=== PATIENT | female | born 1980 | race Caucasian/White ===

== ENCOUNTER 2024-06-12 13:58 | Emergency (ER) | payer BC, SELFPAY ==
[2024-06-12 14:17] VITALS: BP 167/87; PULSE 88; TEMP 36.8; O2SAT 98; BMI 35.0
--- NOTE | 2024-06-12 14:38 | CT_ITS ---
[address] [address] Patient Name: CECY VIRAMONTES MRN: [id number] date: 1980 Sex: F Assigned Patient Location: ER Current Patient Location: Accession/Order Number: [id number] Exam Date: 06/12/2024 14:51 Report Date: 06/12/2024 15:22 At the request of: BRIAN GONZALEZ Procedure: CT abdomen pelvis wo con EXAM: CT abdomen pelvis wo con HISTORY: Hematuria, urinary pressure COMPARISON: None. TECHNIQUE: CT of the abdomen and pelvis without intravenous contrast. Dose reduction techniques were achieved by using automated exposure control and/or adjustment of mA and/or kV according to patient size and/or use of iterative reconstruction technique. FINDINGS: Limited evaluation of the viscera/organs and vasculature without intravenous contrast. TUBES AND IMPLANTS: Intrauterine device LOWER CHEST: Unremarkable ABDOMEN and PELVIS ABDOMINAL WALL AND SOFT TISSUES: Unremarkable. BONES: No suspicious lesions. ARTERIES: Incompletely evaluated. No aortoiliac aneurysm. VEINS: Incompletely evaluated. LYMPH NODES: Unremarkable. PERITONEUM/ RETROPERITONEUM: No abscess or evidence of perforation. BOWEL: Unremarkable. APPENDIX: The appendix is filled with fluid and the tip of the appendix is dilated measuring 1.1 centimeters. No surrounding inflammatory changes. LIVER: No suspicious lesions within the [id number]. GALLBLADDER: Unremarkable. BILE DUCTS: Not dilated SPLEEN: Unremarkable PANCREAS: Unremarkable. ADRENALS: Unremarkable. KIDNEYS/ URETERS: A 2 millimeter nonobstructing left renal calculus. No right stones or hydronephrosis. REPRODUCTIVE ORGANS: Right ovarian cyst measuring 5.6 centimeters. Uterus and left ovary appear grossly unremarkable. URINARY BLADDER: Moderate wall thickening CT/CT abdomen pelvis wo con IMPRESSION: 1. Moderate wall thickening of the bladder, correlate for cystitis. 2. A 2 millimeter nonobstructing left renal calculus. 3. Right ovarian cyst measuring 5.6 centimeters. Pelvic ultrasound for further evaluation as clinically warranted. 4. The appendix is filled with fluid and the tip of the appendix is dilated measuring 1.1 centimeters. No surrounding inflammatory changes. No convincing evidence of acute appendicitis at this time. Close clinical follow-up is recommended. Electronically authenticated by: MISSY OBRIEN Date: 06/12/2024 15:22
--- NOTE | 2024-06-12 14:39 | ED.GENADUL1 ---
HPI HPI - General Adult General Chief complaint: Urogenital-Female Stated complaint: UTI COMPLAINTS Time Seen by Provider: 06/12/24 14:25 Source: patient Mode of arrival: walk-in Limitations: no limitations History of Present Illness HPI narrative: Patient is a 44-year-old female who presents to the emergency department for a 4-week history of burning with urination and pelvic pressure. She has an IUD in place, she states she has intermittent vaginal bleeding. She has had no fevers or vomiting. She has no flank pain or back pain. She states at the beginning of the course of her illness she had some nausea and thinks that she may have passed a kidney stone. She states she has to go to work today and she had urinary incontinence earlier dates she has a primary care provider but she does not go often enough that she could easily get into the office to be seen for these complaints. She has no concern for . No medications given prior to arrival. Related Data Home Medications ?Medication ?Instructions ?Recorded ?Confirmed esomeprazole magnesium 20 mg 20 mg PO DAILY 06/12/24 06/12/24 capsule,delayed release (Acid Electric Dolly Operator (esomeprazole)) Previous Rx's ?Medication ?Instructions ?Recorded ciprofloxacin HCl 500 mg tablet 500 mg PO Q12H #14 tabs 06/12/24 ketorolac 10 mg tablet 10 mg PO TID PRN pain #10 tabs 06/12/24 ondansetron 4 mg disintegrating 4 mg PO Q6H PRN nausea and 06/12/24 tablet vomiting #12 tabs phenazopyridine 200 mg tablet 200 mg PO Q8H 2 days #6 tabs 06/12/24 (Pyridium) Allergies Allergy/AdvReac Type Severity Reaction Status Date / Time No Known Drug Allergies Allergy Verified 06/12/24 14:17 Opioid HPI Opioid Management Most Recent Opioid Data: No Data to Display Review of Systems ROS Constitutional Denies: fever or chills Ears, nose, mouth, and throat Denies: throat pain or nasal congestion Cardiovascular Denies: chest pain Gastrointestinal Denies: abdominal pain, nausea or vomiting Genitourinary Reports: pelvic pain Integumentary/Breast Denies: rash Neurological Denies: numbness in extremities or weakness in extremities Hematologic/Lymphatic Denies: easy bruising or easy bleeding PFSH PFSH Social History Little interest or pleasure in doing things: not at all Feeling down, depressed, or hopeless: not at all Exam Narrative Exam Narrative: Gen.: Awake, alert, in no distress Head: Normocephalic, atraumatic ENT: Moist mucous membranes Respiratory: No respiratory distress Back: No CVA or flank tenderness Gastrointestinal: Abdomen is soft, nondistended and nontender to palpation Extremities: Moves extremities equally Psych: Normal mood and affect Neuro: No focal neuro deficit Skin: Warm, dry, intact Constitutional Vital Signs, click to edit/add: Last Vital Signs Temp 98.3 F 06/12/24 14:17 Pulse 88 06/12/24 14:17 Resp 16 06/12/24 14:17 BP 167/87 H 06/12/24 14:17 Pulse Ox 98 06/12/24 14:17 O2 Del Method Room Air 06/12/24 14:17 Course Vital Signs Vital signs: Vital Signs Temperature 98.3 F 06/12/24 14:17 Pulse Rate 88 06/12/24 14:17 Respiratory Rate 16 06/12/24 14:17 Blood Pressure 167/87 H 06/12/24 14:17 Pulse Oximetry 98 06/12/24 14:17 Oxygen Delivery Method Room Air 06/12/24 14:17 Temperature 98.3 F 06/12/24 14:17 Pulse Rate 88 06/12/24 14:17 Respiratory Rate 16 06/12/24 14:17 Blood Pressure 167/87 H 06/12/24 14:17 Pulse Oximetry 98 06/12/24 14:17 Oxygen Delivery Method Room Air 06/12/24 14:17 Medical Decision Making [facility] Narrative Medical decision making narrative: CT scan shows the patient has evidence of cystitis with a nonobstructing renal stone, no evidence of ureteral stone. She has a 5.6 cm right ovarian cyst. Radiologist states that the appendix is at the upper limit of normal at 11 mm, however no evidence of appendicitis or inflammatory changes. Patient with no McBurney's tenderness and has had urinary symptoms for 4 weeks. She has no flank or CVA tenderness. No fevers or vomiting. She will be placed on antibiotics, Pyridium, Zofran and Toradol for comfort. She was made aware of the ovarian cyst for follow-up, however at this time she has no pain out of proportion on exam or significant pain on the right lower quadrant to warrant an ultrasound at this time. Return to the ER if symptoms change or worsen SUPERVISED APC VISIT, PHYSICIAN ATTESTATION: Based on the medical record the care appears appropriate. ? Medical Records Medical records reviewed: Yes I reviewed the patient's medical records Lab Data Lab results reviewed: Yes I reviewed the patient's lab results Labs: Lab Results 06/12/24 06/12/24 Range/Units 14:30 15:00 Urine Color Lt. yellow (YELLOW) Urine Clarity Clear (CLEAR) Urine pH 6.0 (5.0-9.0) Ur Specific [place] 1.020 (1.005-1.025) Urine Protein Negative (NEG/TRACE) mg/dL Urine Glucose (UA) Negative (NEGATIVE) mg/dL Urine Ketones Negative (NEGATIVE) mg/dL Urine Occult Blood Large A (NEGATIVE) Urine Nitrite Negative (NEGATIVE) Urine Bilirubin Negative (NEGATIVE) Urine Urobilinogen 0.2 (0.2-1.0) EU/dL Ur Leukocyte Esterase Moderate A (NEGATIVE) Urine RBC 5-10 A (0-2) #/HPF Urine WBC 20-50 A (NONE SEEN) #/HPF Ur Squamous Epith Cells Rare (NONE/RARE) #/LPF Urine Crystals Seen A (None Seen) #/HPF Calcium Oxalate Crystal Rare Urine Bacteria Trace A (NONE SEEN) #/HPF Urine Casts None seen (NONE SEEN) #/LPF Urine Mucus None seen (NONE SEEN) Ur Culture Indicated? Yes Urine HCG, Qual Negative (NEGATIVE) Imaging Data CT scan - abdomen: Attestation: I have reviewed the pertinent imaging results. Radiologist's impression: ITS Impressions Abdomen/Pelvis CT 06/12/24 14:38 IMPRESSION: 1. Moderate wall thickening of the bladder, correlate for cystitis. 2. A 2 millimeter nonobstructing left renal calculus. 3. Right ovarian cyst measuring 5.6 centimeters. Pelvic ultrasound for further evaluation as clinically warranted. 4. The appendix is filled with fluid and the tip of the appendix is dilated measuring 1.1 centimeters. No surrounding inflammatory changes. No convincing evidence of acute appendicitis at this time. Close clinical follow-up is recommended. Electronically authenticated by: MISSY OBRIEN Date: 06/12/2024 15:22 Discharge Plan Discharge Chief Complaint: Urogenital-Female Clinical Impression: Urinary tract infection Patient Disposition: Home, Self-Care Time of Disposition Decision: 15:31 Condition: Good Prescriptions / Home Meds: New phenazopyridine [Pyridium] 200 mg tablet 200 mg PO Q8H 2 Days Qty: 6 0RF ciprofloxacin HCl 500 mg tablet 500 mg PO Q12H Qty: 14 0RF ketorolac 10 mg tablet 10 mg PO TID PRN (Reason: pain) Qty: 10 0RF ondansetron 4 mg tablet,disintegrating 4 mg PO Q6H PRN (Reason: nausea and vomiting) Qty: 12 0RF No Action esomeprazole magnesium [Acid Electric Dolly Operator (esomeprazole)] 20 mg capsule,delayed release(DR/EC) 20 mg PO DAILY Print Language: [place] Citizen Instructions: Urinary Tract Infection in Women (ED) Referrals: Physician,Non-Staff, MD [Primary Care Provider] - 1 week
[2024-06-12 14:45] LABS: HCG Qualitative Urine* NEGATIVE (NEGATIVE); Internal Control Within Normal Limits
[2024-06-12 15:09] LABS: Bilirubin Urine NEGATIVE (NEGATIVE); Blood Urine LARGE (NEGATIVE); Clarity Urine CLEAR (CLEAR); Color Urine LT. YELLOW (YELLOW); Glucose Urine UA NEGATIVE (NEGATIVE); Ketones Urine NEGATIVE (NEGATIVE); Leukocyte Esterase Urine MODERATE (NEGATIVE); Nitrite Urine NEGATIVE (NEGATIVE); Protein Urine NEGATIVE (NEG/TRACE); Urobilinogen Urine 0.2 EU/dL (0.2-1.0)
[2024-06-12 15:10] LABS: Urine Microscopic Indicated YES
[2024-06-12 15:20] LABS: Bacteria Urine TRACE #/HPF (NONE SEEN); Calcium Oxalate Crystals Urine RARE; Cast Seen? NONE SEEN #/LPF (NONE SEEN); Crystals Seen? Seen #/HPF (None Seen); Mucus Urine NONE SEEN (NONE SEEN); Squamous Epithelial Cell Urine RARE #/LPF (NONE/RARE); Urine Culture Indicated YES; WBC Urine 20-50 #/HPF (NONE SEEN)
[2024-06-14 04:06] LABS: Neisseria gonorrhoeae, NAA Negative (Negative)
[2024-06-15 13:16] LABS: BOX Test Reference Lab FIRELANDS
== END 2024-06-12 15:56 | disposition home or self-care (01) ==
PROVIDERS: Physician Assistant; Emergency Provider Student in an Organized Health Care Education/Training Program
DX: N39.0 Urinary tract infection, site not specified (principal); N83.201 Unspecified ovarian cyst, right side; Z97.5 Presence of (intrauterine) contraceptive device
CPT/HCPCS: 36415; 74176; 81001; 84703; 87086; 87491; 87591; 99284